=== PATIENT | male | born 1975 | race Caucasian/White ===

== ENCOUNTER 2017-06-09 11:55 | Emergency (ER) | payer MEDICAID ==
[2017-06-09] MEDS ORDERED: NAPROXEN 250 MG TABLET PO ONE (12:14)
[2017-06-09] MEDS ORDERED: LIDOCAINE 5% (700 MG) TRANSDERMAL ADH..PATCH TP ONE (12:15)
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
[2017-06-09 13:23] VITALS: BP 129/84
== END 2017-06-09 13:23 | disposition home or self-care (01) ==
LOC: ER 11:55
DX: S20.211A Contusion of right front wall of thorax, initial encounter (principal); R07.81 Pleurodynia; W13.2XXA Fall from, out of or through roof, initial encounter; Y93.H3 Activity, building and construction; Y92.009 Unspecified place in unspecified non-institutional (private) residence as the place of occurrence of the external cause; Y99.0 Civilian activity done for income or pay; J98.11 Atelectasis; F17.200 Nicotine dependence, unspecified, uncomplicated
CPT/HCPCS: 99283; 71101; J3490 ×2

== ENCOUNTER 2017-07-29 12:41 | Emergency (ER) | payer MEDICAID ==
[2017-07-29 12:47] VITALS: BP 130/71
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
== END 2017-07-29 14:23 | disposition home or self-care (01) ==
LOC: ER 12:41
DX: S02.31XA Fracture of orbital floor, right side, initial encounter for closed fracture (principal); S02.2XXA Fracture of nasal bones, initial encounter for closed fracture; M26.621 Arthralgia of right temporomandibular joint; R25.2 Cramp and spasm; Y04.2XXA Assault by strike against or bumped into by another person, initial encounter; Y92.89 Other specified places as the place of occurrence of the external cause; F17.200 Nicotine dependence, unspecified, uncomplicated
CPT/HCPCS: 70486; 99283

== ENCOUNTER 2018-01-13 19:02 | Emergency (ER) | payer MEDICAID ==
[2018-01-13 19:10] VITALS: BP 157/86
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
--- NOTE | 2018-01-13 20:48 | RADIOLOGY REPORT (SQ) ---
EXAM DESCRIPTION: CT CHEST WITHOUT COMPLETED DATE/TIME: 01/13/2018 8:31 pm REASON FOR STUDY: Right chest wall pain, rule out rib fracture COMPARISON: None. TECHNIQUE: CT scan performed of the chest without intravenous contrast. Images reviewed with lung, soft tissue and bone windows. Reconstructed coronal and sagittal MPR images reviewed. All images st ored on PACS. All CT scanners at this facility use dose modulation, iterative reconstruction, and/or weight based d osing when appropriate to reduce radiation dose to as low as reasonably achievable (ALARA). [facility]: Dose Right [facility]: CareDose [facility]: Dose Right [facility]: Teradose 4D [facility]: [employer] RADIATION DOSE: CT Rad equipment meets quality standard of care and radiation dose reduction techniq ues were employed. CTDIvol: 7.1 mGy. DLP: 284 mGy-cm. mGy. LIMITATIONS: No technical limitations. FINDINGS: LUNGS AND PLEURA: No masses, infiltrates, or pneumothorax. No pleural effusions or pleura l calcifications. HILAR AND MEDIASTINAL STRUCTURES: No identified masses or abnormal nodes. No obvious aneurysm. HEART AND VASCULAR STRUCTURES: No aneurysm. No pericardial effusion. UPPER ABDOMEN: No significant findings. Limited exam. THYROID AND OTHER SOFT TISSUES: No masses. No adenopathy. BONES: No significant finding. HARDWARE: None in the chest. OTHER: No other significant findings. IMPRESSION: NO SIGNIFICANT FINDING ON NON-CONTRASTED CHEST CT. TECHNICAL DOCUMENTATION: JOB ID: [id number] Quality ID # [id number]: Final reports with documentation of one or more dose reduction techniques (e.g., Au tomated exposure control, adjustment of the mA and/or kV according to patient size, use of iterative reconstruction technique) 2010 [employer]- All Rights Reserved Reading location - IP/workstation name: [email or web address]
[2018-01-13] MEDS ORDERED: KETOROLAC TROMETHAMINE 60 MG/2 ML SDV IM ONE (21:38)
[2018-01-13] MEDS ORDERED: OXYCODONE-ACETAMINOPHEN 5-325 MG TABLET PO ONE (21:38)
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
== END 2018-01-13 22:45 | disposition home or self-care (01) ==
LOC: ER 19:02
DX: S20.211A Contusion of right front wall of thorax, initial encounter (principal); X58.XXXA Exposure to other specified factors, initial encounter; F17.200 Nicotine dependence, unspecified, uncomplicated; F12.10 Cannabis abuse, uncomplicated
CPT/HCPCS: 99284; 96372; 71250; J1885

== ENCOUNTER 2019-03-10 15:24 | Emergency (ER) | payer SELFPAY ==
[2019-03-10 15:30] VITALS: BP 149/97
[2019-03-10] MEDS ORDERED: KETOROLAC TROMETHAMINE 60 MG/2 ML SDV IM ONE (16:47)
--- NOTE | 2019-03-10 16:48 | ER Document Report ---
ED Medical Screen (RME) - General Chief Complaint: Flank Pain Stated Complaint: LOWER BACK,SIDE PAIN Time Seen by Provider: 03/10/19 16:42 Primary Care Provider: MAYANK DENNIS MD [Primary Care Provider] - Follow up as needed TRAVEL OUTSIDE OF THE [place] IN LAST 30 DAYS: No - HPI Notes: 03/10/19 16:47 43-year-old male to the emergency department with complaints of bilateral flank pain as well as right upper quadrant abdominal pain that has been ongoing for about a month. He states that sometimes the pain seems to hurt worse with big deep breath and coughing but he states that his pain is really constant. He denies any fevers or chills. He denies any urinary symptoms. He denies any hematuria. He still has his gallbladder. He is never had a kidney stone. I performed a brief medical screening exam on the patient determined that he will need further evaluation and management by me inside provider. I have ordered initial labs and imaging to help expedite his care. - Related Data Allergies/Adverse Reactions: No Known Allergies Allergy (Verified 03/10/19 16:41) Past Medical History - Social History Chew tobacco use (# tins/day): No Frequency of alcohol use: None Drug Abuse: None Pulmonary Medical History: Denies: Hx Tuberculosis Neurological Medical History: Denies: Hx Seizures Renal/ Medical History: Denies: Hx Peritoneal Dialysis Musculoskeltal Medical History: Reports Hx Arthritis Traumatic Medical History: Reports: Hx Fractures - neck 10+ yrs ago Past Surgical History: Reports: Hx Abdominal Surgery, Hx Herniorrhaphy - hernia repair 7 yrs ago. Denies: Hx Pacemaker - Immunizations Hx Diphtheria, Pertussis, Tetanus Vaccination: Yes Physical Exam - Vital signs Vitals: Temp Pulse Resp BP Pulse Ox 97.5 F 61 16 149/97 H 96 03/10/19 15:29 03/10/19 15:29 03/10/19 15:29 03/10/19 15:29 03/10/19 15:29 Course - Vital Signs Vital signs: Temp Pulse Resp BP Pulse Ox 97.5 F 61 16 149/97 H 96 03/10/19 15:29 03/10/19 15:29 03/10/19 15:29 03/10/19 15:29 03/10/19 15:29 Doctor's Discharge - Discharge Referrals: MAYANK DENNIS MD [Primary Care Provider] - Follow up as needed
== END 2019-03-10 17:40 | disposition left against medical advice (07) ==
LOC: ER 15:24
DX: M54.5 Low back pain (principal); R10.11 Right upper quadrant pain
CPT/HCPCS: 99281

== ENCOUNTER 2019-03-12 13:54 | Emergency (ER) | payer SELFPAY ==
--- NOTE | 2019-03-12 14:40 | ER Document Report ---
ED Medical Screen (RME) - General Chief Complaint: Flank Pain Stated Complaint: FLANK PAIN Time Seen by Provider: 03/12/19 14:37 Primary Care Provider: MAYANK DENNIS MD [Primary Care Provider] - Follow up as needed Mode of Arrival: Ambulatory Information source: Patient Notes: Patient presents with right-sided flank pain for the past month. Reports pain is getting worse. Denies history of kidney stones. Denies pain with void. Denies fever vomiting diarrhea. Denies recent trauma. Patient right flank tender to palpate I have greeted and performed a rapid initial assessment of this patient. A comprehensive ED assessment and evaluation of the patient, analysis of test results and completion of the medical decision making process will be conducted by additional ED providers. TRAVEL OUTSIDE OF THE [place] IN LAST 30 DAYS: No - Related Data Allergies/Adverse Reactions: No Known Allergies Allergy (Verified 03/10/19 16:41) Past Medical History - Social History Frequency of alcohol use: Occasional Pulmonary Medical History: Denies: Hx Tuberculosis Neurological Medical History: Denies: Hx Seizures Renal/ Medical History: Denies: Hx Peritoneal Dialysis Musculoskeltal Medical History: Reports Hx Arthritis Traumatic Medical History: Reports: Hx Fractures - neck 10+ yrs ago Past Surgical History: Reports: Hx Abdominal Surgery, Hx Herniorrhaphy - hernia repair 7 yrs ago. Denies: Hx Pacemaker - Immunizations Hx Diphtheria, Pertussis, Tetanus Vaccination: Yes Physical Exam - Vital signs Vitals: Temp Pulse Resp BP Pulse Ox 98.3 F 67 14 149/86 H 97 03/12/19 14:06 03/12/19 14:06 03/12/19 14:06 03/12/19 14:06 03/12/19 14:06 Course - Vital Signs Vital signs: Temp Pulse Resp BP Pulse Ox 98.3 F 67 14 149/86 H 97 03/12/19 14:06 03/12/19 14:06 03/12/19 14:06 03/12/19 14:06 03/12/19 14:06 Doctor's Discharge - Discharge Referrals: MAYANK DENNIS MD [Primary Care Provider] - Follow up as needed
[2019-03-12 15:36] LABS: ABSOLUTE BASOPHILS # (AUTO) 0.1 10^3/uL (0.0-0.2); ABSOLUTE EOSINOPHILS # (AUTO) 0.1 10^3/uL (0.0-0.6); ABSOLUTE LYMPHOCYTES (AUTO) 2.2 10^3/uL (0.5-4.7); ABSOLUTE MONOCYTES (AUTO) 0.5 10^3/uL (0.1-1.4); ABSOLUTE NEUT (AUTO) 4.7 10^3/uL (1.7-8.2); EOSINOPHILS % (AUTO) 1.6 % (0-6); HEMATOCRIT 37.3 % (37.9-51.0); HEMOGLOBIN 12.7 g/dL (13.5-17.0); LYMPHOCYTES % (AUTO) 29.2 % (13-45); MEAN CORPUSCULAR HEMOGLOBIN 30.4 pg (27.0-33.4); MEAN CORPUSCULAR HGB CONC 34.1 g/dL (32.0-36.0); MEAN CORPUSCULAR VOLUME 89 fl (80-97); MONOCYTES % (AUTO) 6.2 % (3-13); PLATELET COUNT 415 10^3/uL (150-450); RED BLOOD COUNT 4.19 10^6/uL (4.35-5.55); RED CELL DISTRIBUTION WIDTH 14.1 % (11.5-14.0); TOTAL CELLS COUNTED % (AUTO) 100 %; WHITE BLOOD COUNT 7.5 10^3/uL (4.0-10.5)
--- NOTE | 2019-03-12 15:51 | RADIOLOGY REPORT (SQ) ---
EXAM DESCRIPTION: CT ABD/PELVIS NO ORAL OR IV COMPLETED DATE/TIME: 03/12/2019 3:32 pm REASON FOR STUDY: right flank pain COMPARISON: None. TECHNIQUE: CT scan of the abdomen and pelvis performed without intravenous or oral contrast. Images reviewed with lung, soft tissue, and bone windows. Reconstructed coronal and sagittal MPR images revi ewed. All images stored on PACS. All CT scanners at this facility use dose modulation, iterative reconstruction, and/or weight based d osing when appropriate to reduce radiation dose to as low as reasonably achievable (ALARA). [facility]: Dose Right [facility]: CareDose [facility]: Dose Right [facility]: Teradose 4D [facility]: Smart Cymax RADIATION DOSE: CT Rad equipment meets quality standard of care and radiation dose reduction techniq ues were employed. CTDIvol: 5.0 mGy. DLP: 230 mGy-cm.mGy. LIMITATIONS: Extremely low body fat FINDINGS: LOWER CHEST: No significant findings. No nodules or infiltrates. NON-CONTRASTED LIVER, SPLEEN, ADRENALS: Evaluation limited by lack of IV contrast. No identified sign ificant masses. PANCREAS: No masses. No peripancreatic inflammatory changes. GALLBLADDER: No identified stones by CT criteria. No inflammatory changes to suggest cholecystitis. RIGHT KIDNEY AND URETER: No suspicious masses. Assessment limited by lack of IV contrast. No signif icant calcifications. No hydronephrosis or hydroureter. LEFT KIDNEY AND URETER: No suspicious masses. Assessment limited by lack of IV contrast. No signifi cant calcifications. No hydronephrosis or hydroureter. AORTA AND RETROPERITONEUM: Mild vascular calcification. BOWEL AND PERITONEAL CAVITY: No obvious masses or inflammatory changes. No free fluid. APPENDIX: Normal. PELVIS, BLADDER, AND ABDOMINAL WALL:No abnormal masses. No free fluid. Bladder normal. BONES: Degenerative disc disease L3-4 and T11-12 OTHER: No other significant finding. IMPRESSION: NO SIGNIFICANT OR ACUTE PROCESS IN THE ABDOMEN OR PELVIS. COMMENT: Quality ID # [id number]: Final reports with documentation of one or more dose reduction techniques (e.g., Automated exposure control, adjustment of the mA and/or kV according to patient size, use of iterative reconstruction technique) TECHNICAL DOCUMENTATION: JOB ID: [id number] [employer]- All Rights Reserved Reading location - IP/workstation name: [email or web address]
[2019-03-12 15:52] LABS: APPEARANCE,URINE SLIGHTLY-CLOUDY; BILIRUBIN,URINE NEGATIVE (NEGATIVE); COLOR,URINE YELLOW; GLUCOSE, URINE NEGATIVE (NEGATIVE); KETONES,URINE NEGATIVE (NEGATIVE); LEUKOCYTE ESTERASE,URINE LARGE (NEGATIVE); NITRITE,URINE NEGATIVE (NEGATIVE); PROTEIN,URINE >=500 mg/dL (NEGATIVE); UROBILINOGEN,URINE NEGATIVE mg/dL (<2.0)
[2019-03-12 15:54] LABS: ALBUMIN 3.6 g/dL (3.5-5.0); ALKALINE PHOSPHATASE 208 U/L (38-126); ANION GAP 8 (5-19); ASPARTATE AMINO TRANSFERASE 26 U/L (17-59); BILIRUBIN,TOTAL 0.3 mg/dL (0.2-1.3); BLOOD UREA NITROGEN 13 mg/dL (7-20); CALCIUM 9.1 mg/dL (8.4-10.2); CARBON DIOXIDE 25 mmol/L (22-30); CHLORIDE 104 mmol/L (98-107); GLUCOSE 111 mg/dL (75-110); POTASSIUM 4.1 mmol/L (3.6-5.0)
--- NOTE | 2019-03-12 16:46 | ER Document Report ---
ED General - General Chief Complaint: Flank Pain Stated Complaint: FLANK PAIN Time Seen by Provider: 03/12/19 14:37 Primary Care Provider: MAYANK DENNIS MD [Primary Care Provider] - Follow up as needed Mode of Arrival: Ambulatory TRAVEL OUTSIDE OF THE [place] IN LAST 30 DAYS: No - HPI Notes: Patient is a 43-year-old male who presents emergency department for evaluation of several weeks of flank pain. Is right greater than left, bilateral. He denies any fevers or chills. No nausea or vomiting. No urinary symptoms. No hematuria. He denies any bowel or bladder incontinence, no saddle anesthesia, no focal numbness or weakness. He states his pain is made worse by coughing as well as laying flat. He is been taking [id number] medications which cause mild improvement in his pain. - Related Data Allergies/Adverse Reactions: No Known Allergies Allergy (Verified 03/10/19 16:41) Home Medications: Tylenol or ibuprofen as needed Past Medical History - General Information source: Patient - Social History Smoking Status: Never Smoker Frequency of alcohol use: Occasional Family History: None Patient has suicidal ideation: No Patient has homicidal ideation: No Pulmonary Medical History: Denies: Hx Tuberculosis Neurological Medical History: Denies: Hx Seizures Renal/ Medical History: Denies: Hx Peritoneal Dialysis Musculoskeletal Medical History: Reports Hx Arthritis - back, neck, scoliosis Traumatic Medical History: Reports: Hx Fractures - neck 10+ yrs ago Past Surgical History: Reports: Hx Abdominal Surgery - hernia, Hx Herniorrhaphy - hernia repair 7 yrs ago, Hx Orthopedic Surgery - back, neck shattered vertebrae. Denies: Hx Pacemaker - Immunizations Hx Diphtheria, Pertussis, Tetanus Vaccination: Yes Review of Systems - Review of Systems Constitutional: No symptoms reported EENT: No symptoms reported Cardiovascular: No symptoms reported Respiratory: No symptoms reported Gastrointestinal: No symptoms reported Genitourinary: See HPI Musculoskeletal: See HPI Skin: No symptoms reported Neurological/Psychological: No symptoms reported Physical Exam - Vital signs Vitals: Temp Pulse Resp BP Pulse Ox 98.3 F 67 14 149/86 H 97 03/12/19 14:06 03/12/19 14:06 03/12/19 14:06 03/12/19 14:06 03/12/19 14:06 - Notes Notes: Vital signs reviewed, please refer to chart. Head is normocephalic, atraumatic. Pupils equal round, reactive to light. Neck is supple without meningismus. Heart is regular rate and rhythm. Lungs are clear to auscultation bilaterally. Abdomen is soft, nontender, normoactive bowel sounds throughout. No CVA tenderness. Examination of the spine yields no midline tenderness or step-off. He has paraspinal musculature tenderness from approximately T10 down to L3-L4 with associated spasm, right greater than left. Negative straight leg raise bilaterally. Patellar and Achilles reflexes are symmetrical, sensation is intact, strength is +5-5 bilateral lower extremities. Extremities without cyanosis, clubbing. Posterior calves are nontender. Peripheral pulses are equal. Skin is warm and dry. Patient is awake, alert, neurological exam is nonfocal. Course - Re-evaluation Re-evalutation: 03/12/19 16:43 Patient presents to the emergency department for evaluation. His pain on exam seems musculoskeletal. His CT scan is unremarkable. Lab work is unremarkable. We will send patient home with anti-inflammatories and muscle relaxers. We discussed moist heat to the area, gentle stretching, and possible need for referral if pain persists for possible physical therapy. He voiced understanding to all of this and was discharged. He is to return to the ED with worsening. - Vital Signs Vital signs: Temp Pulse Resp BP Pulse Ox 98.3 F 67 14 149/86 H 97 03/12/19 14:06 03/12/19 14:06 03/12/19 14:06 03/12/19 14:06 03/12/19 14:06 - Laboratory Result Diagrams: 03/12/19 15:19 03/12/19 15:19 Laboratory results interpreted by me: 03/12/19 03/12/19 03/12/19 15:19 15:19 15:19 RBC 4.19 L Hgb 12.7 L Hct 37.3 L RDW 14.1 H Sodium 136.7 L Glucose 111 H Alkaline Phosphatase 208 H Urine Protein >=500 H Ur Leukocyte Esterase LARGE H - Diagnostic Test Radiology reviewed: Image reviewed, Reports reviewed Radiology results interpreted by me: 03/12/19 16:43 Abdomen/Pelvis CT 03/12/19 14:39 IMPRESSION: NO SIGNIFICANT OR ACUTE PROCESS IN THE ABDOMEN OR PELVIS. Discharge - Discharge Clinical Impression: Low back pain Qualifiers: Chronicity: acute Back pain laterality: bilateral Sciatica presence: without sciatica Qualified Code(s): M54.5 - Low back pain Condition: Stable Disposition: HOME, SELF-CARE Instructions: Low Back Pain ([facility]) Additional Instructions: Moist heat to the painful area. Take medications as prescribed. Gentle stretching. Avoid prolonged bedrest. Follow-up with primary care in 1 to 2 weeks. If your pain worsens, you develop numbness or tingling, incontinence of bowel or bladder, or any other new or concerning symptoms, please return immediately to the emergency department for evaluation. Referrals: MAYANK DENNIS MD [Primary Care Provider] - Follow up as needed
[2019-03-12 17:11] VITALS: BP 143/98
== END 2019-03-12 17:05 | disposition home or self-care (01) ==
LOC: ER 13:54
DX: M54.5 Low back pain (principal); R10.9 Unspecified abdominal pain; R05 Cough; Z79.899 Other long term (current) drug therapy
CPT/HCPCS: 36415; 74176; 80053; 81001; 85025; 99284

== ENCOUNTER 2019-10-05 07:37 | Emergency (ER) | payer SELFPAY ==
--- NOTE | 2019-10-05 09:13 | ER Document Report ---
ED ENT - General Chief Complaint: Sore Throat Stated Complaint: COUGH,SORE THROAT,CHILLS Time Seen by Provider: 10/05/19 08:45 Primary Care Provider: MAYANK DENNIS MD [Primary Care Provider] - Follow up as needed Notes: CHIEF COMPLAINT: Sore throat for 2 days HPI: 43-year-old male presenting to the emergency department complaining of sore throat for 2 days, also with runny nose and slight dry cough. No fever. Patient is not concerned about COVID ROS: See HPI - all other systems were reviewed and are otherwise negative Constitutional: no fever Eyes: no drainage, no blurred vision ENT: + runny nose, + sore throat Cardiovascular: no chest pain Resp: no SOB, + cough GI: no vomiting, no diarrhea, no abdominal pain : no dysuria Integumentary: no rash Allergy: no hives Musculoskeletal: no extremity pain or swelling Neurological: no numbness/tingling, no weakness MEDICATIONS: I agree with the patient medications as charted by the RN. ALLERGIES: I agree with the allergies as charted by the RN. PAST MEDICAL HISTORY/PAST SURGICAL HISTORY: Reviewed and agree as charted by RN. SOCIAL HISTORY: Reviewed and agree as charted by RN. FAMILY HISTORY: No significant familial comorbid conditions directly related to patient complaint EXAM: Reviewed vital signs as charted by RN. CONSTITUTIONAL: Alert and oriented and responds appropriately to questions. Well-appearing; well-nourished HEAD: Normocephalic; atraumatic EYES: PERRL; Conjunctivae clear, sclerae non-icteric ENT: normal nose; positive clear rhinorrhea; moist mucous membranes; pharynx without lesions noted, no uvula edema or deviation, no tonsillar hypertrophy, phonation normal. Small amount of drainage in the posterior pharynx is noted NECK: Supple without meningismus; non-tender; no cervical lymphadenopathy, no masses CARD: RRR; no murmurs, no clicks, no rubs, no gallops; symmetric distal pulses RESP: Normal chest excursion without splinting or tachypnea; breath sounds clear and equal bilaterally; no wheezes, no rhonchi, no rales, pulse oximetry 98% on room air not hypoxic ABD/GI: Normal bowel sounds; non-distended; soft, non-tender, no rebound, no guarding; no palpable organomegaly or masses. BACK: The back appears normal and is non-tender to palpation, there is no CVA tenderness EXT: Normal ROM in all joints; non-tender to palpation; no cyanosis, no effusions, no edema SKIN: Normal color for age and race; warm; dry; good turgor; no acute lesions noted NEURO: Moves all extremities equally; Motor and sensory function intact PSYCH: The patient's mood and manner are appropriate. Grooming and personal hygiene are appropriate. MDM: 43-year-old male presenting with sore throat complaint will obtain strep test. He declines COVID test. TRAVEL OUTSIDE OF THE [place] IN LAST 30 DAYS: No - Related Data Allergies/Adverse Reactions: No Known Allergies Allergy (Verified 03/10/19 16:41) Past Medical History - Social History Smoking Status: Current Every Day Smoker Chew tobacco use (# tins/day): No Family History: None Pulmonary Medical History: Denies: Hx Tuberculosis Neurological Medical History: Denies: Hx Seizures Renal/ Medical History: Denies: Hx Peritoneal Dialysis Musculoskeletal Medical History: Reports Hx Arthritis - back, neck, scoliosis Traumatic Medical History: Reports: Hx Fractures - neck 10+ yrs ago Past Surgical History: Reports: Hx Abdominal Surgery - hernia, Hx Herniorrhaphy - hernia repair 7 yrs ago, Hx Orthopedic Surgery - back, neck shattered vertebrae. Denies: Hx Pacemaker - Immunizations Hx Diphtheria, Pertussis, Tetanus Vaccination: Yes Physical Exam - Vital signs Vitals: Temp Pulse Resp BP Pulse Ox 98.0 F 55 L 18 118/85 97 10/05/19 07:48 10/05/19 07:48 10/05/19 07:48 10/05/19 07:48 10/05/19 07:48 Course - Re-evaluation Re-evalutation: 10/05/19 09:34 Rapid strep is negative. Patient declines COVID testing, will discharge home symptomatic treatment - Vital Signs Vital signs: Temp Pulse Resp BP Pulse Ox 98.0 F 55 L 18 118/85 97 10/05/19 07:48 10/05/19 07:48 10/05/19 07:48 10/05/19 07:48 10/05/19 07:48 Discharge - Discharge Clinical Impression: Sore throat (viral) Condition: Stable Disposition: HOME, SELF-CARE Additional Instructions: Motrin or Tylenol consistently for discomfort. Salt water gargles 2-3 times emma ly. Take [id number] decongestants to help with nasal congestion and postnasal drip. Rapid strep test today was negative. Return for worsening symptoms Referrals: MAYANK DENNIS MD [Primary Care Provider] - Follow up as needed
[2019-10-05 09:52] VITALS: BP 114/72
== END 2019-10-05 09:46 | disposition home or self-care (01) ==
LOC: ER 07:37
DX: J02.8 Acute pharyngitis due to other specified organisms (principal); B97.89 Other viral agents as the cause of diseases classified elsewhere; R09.89 Other specified symptoms and signs involving the circulatory and respiratory systems; R05 Cough; F17.200 Nicotine dependence, unspecified, uncomplicated
CPT/HCPCS: 87070; 87880; 99283